=== PATIENT | female | born 1950 | race Two or more races ===

== ENCOUNTER 2019-04-24 13:31 | Outpatient (CLI) | payer MEDICARE ==
[~2019-04-24] VITALS: Ht 162.6 cm; Wt 77.1 kg
[2019-04-24 16:08] VITALS: BP 103/74
--- NOTE | 2019-04-24 18:15 | Consultation ---
DATE OF CONSULTATION: 04/24/2019 CONSULTING PHYSICIAN: Sree Eubanks M.D. CHIEF COMPLAINT: Referral for screening colonoscopy, also chronic GERD. PAST MEDICAL HISTORY: 1. UTI. 2. Kidney stones. ALLERGIES: No known allergies. MEDICATIONS: Please see medication reconciliation list. FAMILY HISTORY: No family history of malignancies. SOCIAL HISTORY: The patient denies any tobacco, alcohol, or drug abuse. REVIEW OF SYSTEMS: Positive for constipation, GERD. PHYSICAL EXAMINATION: VITAL SIGNS: Temperature 97.8, blood pressure is 102/59, pulse is 80, respirations 20. Height is 5 feet 2 inches, weight is 118. HEENT: Normocephalic, atraumatic. Sclerae anicteric. NECK: Supple. No evidence of obvious lymphadenopathy. CARDIOVASCULAR: Regular rate and rhythm. Plus S1 and S2. No obvious murmur. LUNGS: Decreased breath sounds bilaterally based on the supine exam. ABDOMEN: Soft and nontender. No rebound. No guarding. No peritoneal sign. EXTREMITIES: No cyanosis, no clubbing, no edema. ASSESSMENT AND PLAN: This is a pleasant 69-year-old female, referred for screening colonoscopy and chronic GERD. The patient was scheduled for endoscopy and colonoscopy this coming Wednesday. The patient was instructed about the risks and benefits of procedure. The prep was explained to her. She understood and she is scheduled to have it done this coming Wednesday. I want to thank Dr. Larry Aleman for this kind referral. Sree Eubanks M.D. DR: ALAINA JOB#: [id number] CC: Larry Aleman M.D.; Fax#: [phone]
[2019-04-25] MEDS ORDERED: CARBAMAZEPINE200 MG ORAL (07:51)
== END 2019-04-24 15:31 | disposition home or self-care (01) ==
LOC: PAN 13:31
DX: K21.9 Gastro-esophageal reflux disease without esophagitis (principal); Z87.442 Personal history of urinary calculi; K59.00 Constipation, unspecified

== ENCOUNTER 2019-05-30 09:45 | Outpatient (CLI) | payer MEDICARE ==
[~2019-05-30 09:45] MED LIST: CARBAMAZEPINE200 MG ORAL
[2019-05-30 14:35] VITALS: BP 125/74
--- NOTE | 2019-05-31 13:29 | General Progress Note ---
Assessment/Plan Assessment/Plan: s/p EGD and colonoscopy SUMMARY OF FINDINGS: 1. Atrophic gastritis, status post biopsy to rule out H. pylori infection. 2. One colonic polyp removed. See above for detail. 3. Suspicious proctitis, status post biopsy. 4. Solitary rectal ulcer, status post biopsy. 5. Internal hemorrhoids. path reviewed add movantic plan EUS for panc cyst Subjective ROS Limited/Unobtainable: Yes Allergies: Coded Allergies: No Known Allergies (Unverified , 04/24/19) Objective Last 24 Hour Vital Signs Date Time Temp Pulse Resp B/P (MAP) Pulse Ox O2 Delivery O2 Flow Rate FiO2 05/30/19 14:35 98.0 84 16 125/74 (91) 99 General Appearance: alert EENT: normal ENT inspection Neck: supple Cardiovascular: normal rate Respiratory/Chest: decreased breath sounds Abdomen: normal bowel sounds, non tender, soft Extremities: non-tender Sree Eubanks MD May 31, 2019 13:29
== END 2019-05-30 11:45 | disposition home or self-care (01) ==
LOC: PAN 09:45
DX: K29.40 Chronic atrophic gastritis without bleeding (principal); K63.5 Polyp of colon; K62.6 Ulcer of anus and rectum; K64.8 Other hemorrhoids
CPT/HCPCS: 99212

== ENCOUNTER 2019-06-07 07:25 | Day surgery (SDC) | payer MEDICARE, MEDICAID ==
[~2019-06-07] VITALS: Ht 157.5 cm; Wt 59.0 kg
[2019-06-07] VITALS (8 sets, daily range): BP systolic 104–122; BP diastolic 60–71
[~2019-06-07 07:25] MED LIST changes: +LR 1000ml 1,000 ML IVLG SCH
[2019-06-07] MEDS ORDERED: NORCO 5-325 TA1 EACH ORAL (07:47)
[2019-06-07] MEDS ORDERED: LR 1000ml ONE (09:00)
[2019-06-07] MEDS ORDERED: Propofol 200mg/20ml IV ONE (09:00)
[2019-06-07] MEDS ORDERED: Atropine Sulfate 0.4mg/ml inj ONE (09:00)
[2019-06-07] MEDS ORDERED: Lidocaine 1% MPF 10mg/ml 5ml ONE (09:00)
--- NOTE | 2019-06-07 09:16 | Pre-Procedure Note/Attestation ---
Pre-Procedure Note/Attestation Complete Prior to Procedure Planned Procedure: not applicable Procedure Narrative: eus Indications for Procedure Pre-Operative Diagnosis: pancreatic cyst Attestation I attest that I discussed the nature of the procedure; its benefits; risks and complications; and alternatives (and the risks and benefits of such alternatives ), prior to the procedure, with the patient (or the patient's legal asset protection representative). I attest that, if there was a reasonable possibility of needing a blood transfusion, the patient (or the patient's legal asset protection representative) was given the [facility] standardized written summary, pursuant to the Kenny Herminia Blood Safety Act ([place] Health and Safety Code # 1645, as amended). I attest that I re-evaluated the patient just prior to the surgery and that there has been no change in the patient's H&P, except as documented below: Sree Eubanks MD Jun 07, 2019 09:16
--- NOTE | 2019-06-07 09:17 | Short Stay Surgery H&P ---
History of Present Illness History of Present Illness Chief Complaint see recent office note HPI Maribel Romero is a 69 year old female who was admitted on for Pancreatic Cyst Patient History Allergies: Coded Allergies: No Known Allergies (Unverified , 06/07/19) Medication History Scheduled Carbamazepine* (Carbamazepine*), 200 MG ORAL FOUR TIMES A DAY, (Reported) Scheduled PRN Hydrocodone Bit/Acetaminophen 5-325* (Reva 5-325*), 1 TAB ORAL Q6H PRN for For Pain, (Reported) Physical Exam Vital Signs Last Vital Signs Date Time Temp Pulse Resp B/P (MAP) Pulse Ox O2 Delivery O2 Flow Rate FiO2 06/07/19 08:04 98.6 62 18 104/60 99 Room Air Plan Attestation Are the patient's medical conditions optimized for surgery? Sree Eubanks MD Jun 07, 2019 09:17
[2019-06-07] MEDS ORDERED: LR 1000ml 1,000 ML IVLG SCH (09:28)
[2019-06-07] MEDS ORDERED: DiphenhydrAMINE 50mg/ml Inj IVP PRN (09:30)
[2019-06-07] MEDS ORDERED: fentaNYL 100 mcg/2 mL IV PRN (09:30)
[2019-06-07] MEDS ORDERED: Midazolam 2mg/2ml Inj IVP PRN (09:30)
[2019-06-07] MEDS ORDERED: Atropine Inj 1mg/10ml Syr IV PRN (09:30)
--- NOTE | 2019-06-07 09:41 | Anethesia Preoperative Eval ---
Anesthesia Pre-op PMH/ROS General Date of Evaluation: Jun 07, 2019 Time of Evaluation: 08:52 Anesthesiologist: renita ASA Score: ASA 4 Mallampati Score Class I : Soft palate, uvula, fauces, pillars visible Class II: Soft palate, uvula, fauces visible Class III: Soft palate, base of uvula visible Class IV: Only hard plate visible Mallampati Classification: Class II Surgeon: shital Diagnosis: pancreatic cysts Surgical Procedure: egd/eus Anesthesia History: none Social History: smoking - nonsmoker Family History: no anesthesia problems Allergies: Coded Allergies: No Known Allergies (Unverified , 06/07/19) Medications: see eMAR Patient NPO?: Yes Past Medical History Cardiovascular: Reports: [place] Gastrointestinal/Genitourinary: Reports: GERD, other - bladder cancer, kidney stones, pancreatic cysts Hematology/Immune: Reports: other - cancer Anesthesia Pre-op Phys. Exam Physician Exam Last Vital Signs Date Time Temp Pulse Resp B/P (MAP) Pulse Ox O2 Delivery O2 Flow Rate FiO2 06/07/19 08:04 98.6 62 18 104/60 99 Room Air Constitutional: NAD Neurologic: CN 2-12 intact Cardiovascular: RRR Respiratory: CTA Gastrointestinal: S/NT/ND Airway Exam Mallampati Score: Class II MO: limited Neck: flexible TMD: 2fb ROM: limited Anesthesia Pre-op A/P Risk Assessment & Plan Assessment: asa4 Plan: mac Status Change Before Surgery: No Pre-Antibiotics Drug: Minda Gracia MD Jun 07, 2019 09:41
--- NOTE | 2019-06-07 09:48 | Endoscopy Procedure Note ---
Endoscopy Procedure Note General Indication for Procedure: pancreatic cyst Procedures Performed: other - EUS Operative Findings/Diagnosis: same Specimen: none Pt Tolerated Procedure Well: Yes Estimated Blood Loss: none Anesthesia Anesthesiologist: opal Anesthesia: MAC Inserted Devices Implant(s) used?: No GI Core Measures 50 yrs or older w/o bx or poly: Not Applicable 10yrs. F/U recommended: Not Applicable Sree Eubanks MD Jun 07, 2019 09:48
--- NOTE | 2019-06-07 09:58 | Immediate Post-Op Evaluation ---
Immediate Post-Op Evalulation Immediate Post-Op Evalulation Procedure: egd/eus Date of Evaluation: Jun 07, 2019 Time of Evaluation: 09:57 IV Fluids: 400ml lr Blood Products: none Estimated Blood Loss: negligible Blood Pressure Systolic: 104 Blood Pressure Diastolic: 65 Pulse Rate: 66 Respiratory Rate: 18 O2 Sat by Pulse Oximetry: 100 Temperature (Fahrenheit): 98.3 Pain Score (1-10): 0 Nausea: No Vomiting: No Complications none Patient Status: awake, reacts, patent Hydration Status: adequate Drug: Minda Gracia MD Jun 07, 2019 09:58
--- NOTE | 2019-06-07 10:01 | 48 Hour Post Anesthesia Eval ---
Post Anesthesia Evaluation Procedure: egd/eus Date of Evaluation: Jun 07, 2019 Time of Evaluation: 10:00 Blood Pressure Systolic: 109 0: 67 Pulse Rate: 63 Respiratory Rate: 18 Temperature (Fahrenheit): 98.3 O2 Sat by Pulse Oximetry: 100 Airway: patent Nausea: No Vomiting: No Pain Intensity: 0 Hydration Status: adequate Cardiopulmonary Status: stable Mental Status/LOC: patient returned to baseline Post-Anesthesia Complications: none Follow-up care needed: N/A Minda Vincent MD Jun 07, 2019 10:01
--- NOTE | 2019-06-07 17:00 | Procedure Note ---
DATE OF PROCEDURE: 06/07/2019 SURGEON: Sree Eubanks M.D. PROCEDURE: Endoscopic ultrasound. ANESTHESIOLOGIST: Minda Blanco M.D. INSTRUMENT: Olympus adult EUS scope. INDICATION: Pancreatic cyst. REASON FOR PROCEDURE: The procedure, risks, benefits, and possible consequences, including hemorrhage, aspiration, perforation and infection, and alternative treatments, were explained to the patient/legal guardian by Dr. Sree Eubanks and the patient/legal guardian understood and accepted these risks. DESCRIPTION OF PROCEDURE: After informed consent was obtained and the patient was adequately sedated, Olympus EUS scope was advanced from mouth into the second portion of the duodenum and pancreatic parenchyma was carefully examined through the gastroduodenal mucosa. Starting scanning at GE junction, first celiac axis was evaluated. There was no evidence of any celiac axis lymphadenopathy. Left adrenal gland was seen without any adenoma noted. The pancreatic parenchyma was carefully examined. Overall, the patient had normal pancreas. There was no pancreatic duct dilatation. Pancreatic duct measured about 2 mm in the body and tail of the pancreas. There was a small cyst measured roughly about 4.3 mm in the body of the pancreas seems to be connected to the main pancreatic duct, so most probably side-branch IPMN. Given the size of the cyst and given the look of it, we decided not to do FNA at this time. Then, the scope was advanced to the second portion of duodenum and the pancreatic head was examined. Gallbladder was seen pretty distended with at least 1.2 cm stone in it, maybe there was another few small ones too. No gallbladder wall thickening. No common bile duct dilatation. No CBD stone. There was no obvious cyst in the head of the pancreas. The patient tolerated the procedure well without any complication. SUMMARY OF FINDINGS: 1. A 4.3 mm pancreatic cyst in the body seems to be connected to the main pancreatic duct, most probably side-branch IPMN. 2. No dilated pancreatic duct or common bile duct. 3. A 1.2 cm stone in the gallbladder. PLAN: Given the size of this cyst and given the benign nature, I would recommend just monitoring at this time. No need for FNA or surgery at this time. We will recommend the patient to have another EUS in a year. If this lesion seems to be growing then we will reconsider doing FNA at that time. I want to thank Dr. Larry Aleman for this kind referral. Sree Eubanks M.D. DR: SARA JOB#: [id number] CC: Larry Aleman M.D.; Fax#: [phone]
== END 2019-06-07 11:05 | disposition home or self-care (01) ==
LOC: GAS 07:25
DX: K86.2 Cyst of pancreas (principal); I25.2 Old myocardial infarction; K21.9 Gastro-esophageal reflux disease without esophagitis; Z85.51 Personal history of malignant neoplasm of bladder
CPT/HCPCS: 43231; J0461; J2704; J7120; 94003; 94150